=== PATIENT | female | born 1980 | race Caucasian/White ===

== ENCOUNTER 2017-03-28 20:36 | Emergency (ER) | payer OTHER ==
[2015-01-24 12:45] VITALS: Ht 149.9 cm; Wt 60.3 kg
[~2017-03-28] VITALS: Ht 149.9 cm; Wt 60.3 kg
[~2017-03-28 20:36] MED LIST: ACE3 PO; ALB18R INH; ALLERGY SHOTS INJ; AMOX875T60 PO; CETI5TAB25 PO; FERR325T3 PO; FEXO-72 PO; FLUT1DIS28 IH; HYDR-318 PO; HYDR-4225 PO; IBU800 PO; IBUP800T37 PO; LORA10CA3 PO; PER PO; PRED20TA6 PO
[2017-03-28] MEDS ORDERED: ESCI20TA38 PO (20:41)
[2017-03-28 20:42] VITALS: BP 118/77
--- NOTE | 2017-03-28 20:43 | ER Report ---
History and Physical Time Seen By MD: 20:42 HPI/ROS CHIEF COMPLAINT: Right ankle injury HISTORY OF PRESENT ILLNESS: 36-year-old female presents ambulatory to the ER complaining of severe right anterior medial ankle pain after falling. Patient states she was doing a handstand push up against the wall when she lost her balance and she fell striking her right ankle. She is able to ambulate and notes significant pain. There is no bruising or swelling noted. Allergies: Coded Allergies: No Known Drug Allergies (Verified , 03/28/17) Home Meds Reported Medications Escitalopram Oxalate (LEXAPRO) 20 Mg Tablet, 10 MG PO QDAY, TAB 03/28/17 Discontinued Reported Medications [Allergy Shots] No Conflict Check, INJ 2XW 01/15/15 Fluticasone/Salmeterol (ADVAIR 250-50 DISKUS) 1 Each Disk.w.dev, IH DAILY Y for ALLERGY SYMPTOMS 01/15/15 Cetirizine Hcl (CETIRIZINE HCL) 5 Mg Tablet, PO QDAY Y for ALLERGY SYMPTOMS, TAB 01/15/15 Discontinued Scripts Hydrocodone/Acetaminophen (Lortab 7.5-325 mg Tablet) 1 Each Tablet, 1-2 EA PO Q4H for PAIN, #30 TAB 0 Refills Prov:ANKITA THACKER MD 01/25/15 Ibuprofen (IBUPROFEN) 800 Mg Tab, 800 MG PO Q8H Y for PAIN, #30 TAB 0 Refills Prov:ANKITA THACKER MD 01/24/15 Reviewed Nurses Notes: Yes Old Medical Records Reviewed: Yes Hx Smoking: No Smoking Status: Never Smoker Exposure to Second Hand Smoke?: No Hx Substance Use Disorder: No Hx Alcohol Use: No Constitutional Vital Sign - Last 24 Hours 03/28/17 20:42 Temp 99.1 Pulse 72 Resp 20 B/P (MAP) 118/77 Pulse Ox 94 O2 Delivery Room Air Physical Exam General appearance: Alert no distress. Respiratory: Chest is non tender, lungs are clear to auscultation. Cardiac: Regular rate and rhythm Extremities: Examination of the right lower extremity reveals intact neurovascular function in the right foot. There is moderate tenderness over the medial anterior ankle. There is trace soft tissue swelling. There is no bruising or ecchymosis noted DIFFERENTIAL DIAGNOSIS: After history and physical exam differential diagnosis was considered for sprain, strain, fracture, dislocation, contusion Medical Decision Making EKG/Imaging Imaging X-ray: Right ankle, 3 views was obtained. I viewed the images myself on the PACS system. My interpretation of the images is: No fracture no dislocation or malalignment. The radiologist interpretation had no clinically significant variation from this interpretation. ED Course/Re-evaluation ED Course Patient was admitted to an examination room. H&P was done. The differential diagnoses was considered. On clinical examination. Patient has tenderness and swelling to her right medial ankle. The ligament. Intact on stressing. Diagnostic x-rays show no obvious fracture. A conservative treatment plan is formulated for the patient. She likely has a contusion. She is advised ibuprofen for pain relief.. She is placed in air splint. She is advised to follow-up with primary care if unimproved in 3-5 days. Decision to Disposition Date: Mar 28, 2017 Decision to Disposition Time: 21:07 Depart Departure Latest Vital Signs Vital Signs Date Time Temp Pulse Resp B/P (MAP) Pulse Ox O2 Delivery O2 Flow Rate FiO2 03/28/17 20:42 99.1 72 20 118/77 94 Room Air Impression: Primary Impression: Contusion of ankle, right Condition: Improved Disposition: HOME OR SELF-CARE Referrals: RIMA RAMIREZ MD (PCP) Patient Instructions: Contusion in Adults (ED) Additional Instructions: Take ibuprofen 200 mg 3 tablets 3 times a day with food for 3-5 days Apply ice to your ankle for 2 days, 20 minutes 3-4 times per day Follow-up with your primary care if unimproved in 3-5 days Problem Qualifiers Primary Impression: Contusion of ankle, right Encounter type: initial encounter Qualified Codes: S90.01XA - Contusion of right ankle, initial encounter THEA FAULKNER DO Mar 28, 2017 20:43
--- NOTE | 2017-03-28 21:09 | RADIOLOGY IMAGING REPORT ---
FACILITY: [facility] PATIENT NAME: Bernice Galaes : 1980 MR: [id number] V: [id number] EXAM DATE: ORDERING PHYSICIAN: THEA FAULKNER TECHNOLOGIST: Location: [facility] - [place] Patient: Bernice Galeas : 1980 Visit/Account:[id number] Date of Sevice: 03/28/2017 EXAMINATION: Right ankle 3 views HISTORY: Fall. Right medial ankle pain. COMPARISON: None. FINDINGS: No evidence of acute fracture or dislocation about the right ankle. Normal alignment at the ankle mo rtise. Soft tissue swelling surrounds ankle. IMPRESSION: No acute osseous findings at the right ankle. Soft tissue swelling. Report Dictated By: John Lima MD at 03/28/2017 9:04 PM Report E-Signed By: John Lima MD at 03/28/2017 9:04 PM WSN:[id number]
== END 2017-03-28 21:23 | disposition home or self-care (01) ==
LOC: ER 20:54
DX: S90.01XA Contusion of right ankle, initial encounter (principal)
CPT/HCPCS: 73610; L1930; 99282